=== PATIENT | male | born 1990 | race Caucasian/White ===

== ENCOUNTER 2021-05-22 10:43 | Emergency (ER) | payer OTHER ==
[2021-05-22 11:22] LABS: HEMOGLOBIN 13.3 gm/dl (14.0-17.5); RED BLOOD COUNT 4.14 M/UL (4.20-5.50); WHITE BLOOD COUNT 3.8 K/UL (4.5-11.0)
[2021-05-22 11:55] LABS: BUN/CREATININE RATIO 9 (0-10)
[2021-05-22] MEDS ORDERED: K-DUR TAB 20 M20 MEQ PO (12:22)
[2021-05-22] MEDS ORDERED: IBUPROFEN800 MG PO (12:57)
[2021-05-27] MEDS ORDERED: SUBOXONE 12 MG1 EACH SL (07:17)
[2021-05-27] MEDS ORDERED: XIFAXAN 550 MG550 MG PO (07:18)
[2021-05-27] MEDS ORDERED: LAMICTAL25 MG PO (07:18)
[2021-05-27] MEDS ORDERED: SPIRONOLACTONE50 MG PO (07:19)
[2021-05-27] MEDS ORDERED: IBUPROFEN600 MG PO (09:44)
== END 2021-05-22 13:07 | disposition home or self-care (01) ==
LOC: ER1 10:43
PROVIDERS: Physician Assistant
DX: K74.60 Unspecified cirrhosis of liver (principal); E87.6 Hypokalemia; D61.818 Other pancytopenia; K42.0 Umbilical hernia with obstruction, without gangrene; F17.210 Nicotine dependence, cigarettes, uncomplicated; Z88.5 Allergy status to narcotic agent; Z88.0 Allergy status to penicillin; Z90.49 Acquired absence of other specified parts of digestive tract
CPT/HCPCS: 80053; 82140; 83605; 83690; 85025; 85610; 96374; 96376; 99284; J1170; J7030

== ENCOUNTER → 2021-05-27 | Day surgery (SDC) | payer OTHER ==
[~2021-05-27] MED LIST: IBUPROFEN600 MG PO; IBUPROFEN800 MG PO; K-DUR TAB 20 M20 MEQ PO; LAMICTAL25 MG PO; SPIRONOLACTONE50 MG PO; SUBOXONE 12 MG1 EACH SL; XIFAXAN 550 MG550 MG PO
== END | disposition home or self-care (01) ==
LOC: OR 06:36
DX: K42.9 Umbilical hernia without obstruction or gangrene (principal); D61.818 Other pancytopenia; K70.31 Alcoholic cirrhosis of liver with ascites; Z88.0 Allergy status to penicillin; Z88.5 Allergy status to narcotic agent; Z20.822 Contact with and (suspected) exposure to COVID-19; F17.210 Nicotine dependence, cigarettes, uncomplicated; I34.1 Nonrheumatic mitral (valve) prolapse; Z90.49 Acquired absence of other specified parts of digestive tract
CPT/HCPCS: 93005; J0690; J1100; J1170; J1885; J2001; J2250; J2405; J2704; J3010; J7120; U0002